=== PATIENT | male | born 1960 | race Caucasian/White ===

== ENCOUNTER 2018-06-23 08:16 | Emergency (ER) | payer BC ==
[2018-06-23 08:40] LABS: BASOPHILS # (AUTO) 0.1 10^3/uL (0.0-0.1); BASOPHILS % (AUTO) 0.8 %; EOSINOPHILS # (AUTO) 0.1 10^3/uL (0.0-0.7); EOSINOPHILS % (AUTO) 1.1 %; HGB - HEMOGLOBIN 12.8 g/dL (14.0-18.0); LYMPHOCYTES # (AUTO) 2.1 10^3/uL (1.5-3.5); LYMPHOCYTES % (AUTO) 25.8 %; MEAN CORPUSCULAR HEMOGLOBIN 29.8 pg (27.0-31.0); MEAN CORPUSCULAR HGB CONC 34.1 g/dL (32.0-36.0); MEAN CORPUSCULAR VOLUME 87.4 fL (80.0-94.0); MEAN PLATELET VOLUME 7.9 fL (7.4-11.4); MONOCYTES # (AUTO) 0.5 10^3/uL (0.0-1.0); MONOCYTES % (AUTO) 6.8 %; NEUTROPHILS # (AUTO) 5.2 10^3/uL (1.5-6.6); NEUTROPHILS % (AUTO) 65.5 %; PLT - PLATELET COUNT 232 10^3/uL (130-450); RED CELL DISTRIBUTION WIDTH 14.3 % (12.0-15.0)
[2018-06-23 08:54] LABS: ALBUMIN 4.2 g/dL (3.2-5.5); ALBUMIN/GLOBULIN RATIO 1.4 (1.0-2.2); BILIRUBIN,TOTAL 0.7 mg/dL (0.2-1.0); CALCIUM 8.9 mg/dL (8.5-10.3); TOTAL PROTEIN 7.2 g/dL (6.7-8.2)
--- NOTE | 2018-06-23 09:12 | XRAY Report ---
Reason: chest pain Procedure Date: 06/23/2018 Accession Number: [id number] / [id number] Procedure: XR - Chest 2 View X-Ray CPT Code: 09387 FULL RESULT: EXAM: CHEST RADIOGRAPHY EXAM DATE: 06/23/2018 08:44 AM. CLINICAL HISTORY: Left-sided chest pain for one day COMPARISON: None. TECHNIQUE: 2 views. FINDINGS: Lungs/Pleura: No focal opacities evident. No pleural effusion. No pneumothorax. Normal volumes. Mediastinum: Heart and mediastinal contours are unremarkable. IMPRESSION: No evidence of acute thoracic process RADIA
--- NOTE | 2018-06-23 09:18 | ED Physician Documentation ---
PD HPI CHEST PAIN - Stated complaint Stated Complaint: CHEST PX/DIZZY - Chief complaint Chief Complaint: Cardiac - History obtained from History obtained from: Patient, Family - History of Present Illness Timing - onset: Enter time (330pm), Yesterday Timing - onset during: Exertion Timing - duration: Hours Timing - details: Gradual onset, Still present Quality: Pressure, Tightness Location: Substernal Radiation: No: Jaw, Neck, Back, Abdominal, Left upper extremity, Right upper extremity Worsened by: Inspiration Associated symptoms: Feeling faint / dizzy, Other (headache). 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 It was quite warm out yesterday. He did have a lot of diaphoresis during this work. When he was on his way home, he has about 1/2 mile walk to the bus, and at that point he felt that he had some substernal chest pressure and a bit of a headache and did not feel well. This persisted through the night and is coming to the emergency department this morning concerned about what this chest pressure might mean. There has been a smoker inversion this past week and he has been bothered some by the smoke. He does not have radiation of his pain, he does not have exacerbation of the pain with exertion today and he has not had this pain previously. He does believe he did not drink much in the way of fluids yesterday. Review of Systems Constitutional: denies: Fever Eyes: denies: Decreased vision Ears: denies: Ear pain Nose: denies: Congestion Throat: denies: Sore throat Cardiac: reports: Chest pain / pressure. denies: Palpitations, Pedal edema, Calf pain Respiratory: denies: Dyspnea, Cough, Wheezing GI: denies: Abdominal Pain, Nausea, Vomiting : denies: Dysuria, Frequency Skin: denies: Rash Musculoskeletal: denies: Neck pain, Back pain, Extremity pain Neurologic: reports: Headache. denies: Generalized weakness, Focal weakness, Numbness, Head injury, LOC PD PAST MEDICAL HISTORY - Past Medical History Cardiovascular: Hypertension, High cholesterol Respiratory: Shortness of breath, Sleep apnea, CPAP use : Kidney stones Psych: Depression, Anxiety - Past Surgical History General: Cholecystectomy Ortho: Knee replacement - Present Medications Home Medications: Ambulatory Orders Medication Instructions Recorded Confirmed Atenolol 06/23/18 Atorvastatin [Lipitor] 06/23/18 06/23/18 Losartan [Cozaar] 06/23/18 Niacin 06/23/18 Venlafaxine [Effexor] 06/23/18 - Allergies Allergies/Adverse Reactions: Allergies Allergy/AdvReac Type Severity Reaction Status Date / Time Sulfa (Sulfonamide Allergy Itching Verified 06/23/18 08:25 Antibiotics) - Social History Does the pt smoke?: No Smoking Status: Never smoker Does the pt drink ETOH?: Yes Does the pt have substance abuse?: No PD ED PE NORMAL - Vitals Vital signs reviewed: Yes (hypertensive) - General General: Alert and oriented X 3, No acute distress, Well developed/nourished - HEENT HEENT: Atraumatic, PERRL, EOMI - Neck Neck: Supple, no meningeal sign, No bony TTP - Cardiac Cardiac: RRR, No murmur - Respiratory Respiratory: No respiratory distress, Clear bilaterally - Abdomen Abdomen: Soft, Non tender - Back Back: No CVA TTP, No spinal TTP - Derm Derm: Normal color, Warm and dry, No rash - Extremities Extremities: No deformity, No edema - Neuro Neuro: Alert and oriented X 3, 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, No motor deficit, No sensory deficit, Normal speech Eye Opening: Spontaneous Motor: Obeys Commands Verbal: Oriented GCS Score: 15 - Psych Psych: Normal mood, Normal affect Results - Vitals Vitals: Vital Signs - 24 hr 06/23/18 06/23/18 06/23/18 08:22 09:08 10:07 Temperature 36.4 C L Heart Rate 59 L 61 54 L Respiratory 20 17 16 Rate Blood Pressure 156/76 H 146/80 H 132/84 H O2 Saturation 99 98 98 06/23/18 10:44 Temperature 36.2 C L Heart Rate 55 L Respiratory 15 Rate Blood Pressure 131/77 H O2 Saturation 100 Oxygen O2 Source Room air - EKG (time done) 0824 Rate: Rate (enter#) (61) Rhythm: NSR Ischemia: Normal ST segments Compare to prior EKG: Old EKG unavailable Computer interpretation: Agree with computer - Labs Labs: Laboratory Tests 06/23/18 06/23/18 06/23/18 08:37 08:37 08:37 WBC 8.0 RBC 4.30 L Hgb 12.8 L Hct 37.6 L MCV 87.4 MCH 29.8 MCHC 34.1 RDW 14.3 Plt Count 232 MPV 7.9 Neut # (Auto) 5.2 Lymph # (Auto) 2.1 [place] # (Auto) 0.5 Eos # (Auto) 0.1 Baso # (Auto) 0.1 Absolute Nucleated RBC 0.00 Nucleated RBC % 0.0 Sodium 137 Potassium 3.7 Chloride 102 Carbon Dioxide 27 Anion Gap 8.0 BUN 21 H Creatinine 1.0 Estimated GFR (MDRD) 76 L Glucose 128 H Calcium 8.9 Total Bilirubin 0.7 AST 23 ALT 24 Alkaline Phosphatase 61 Troponin I < 0.04 Total Protein 7.2 Albumin 4.2 Globulin 3.0 Albumin/Globulin Ratio 1.4 Lipase 35 - Rads (name of study) 2 veiw chest Radiology: Prelim report reviewed (Impression: No evidence of acute thoracic process.), EMP read indepedently, See rad report PD MEDICAL DECISION MAKING - ED course Complexity details: reviewed results, re-evaluated patient, considered differential, d/w patient, d/w family ED course: 57-year-old male with substernal chest pain for 2 days has negative troponin and this is has occurred during a smoke inversion and I suspect this is subclinical asthma causing chest wall pain. Patient was found to be dehydrated as well and he was given intravenous hydration with improvement. - Sepsis Event Vital Signs: Vital Signs - 24 hr 06/23/18 06/23/18 06/23/18 08:22 09:08 10:07 Temperature 36.4 C L Heart Rate 59 L 61 54 L Respiratory 20 17 16 Rate Blood Pressure 156/76 H 146/80 H 132/84 H O2 Saturation 99 98 98 06/23/18 10:44 Temperature 36.2 C L Heart Rate 55 L Respiratory 15 Rate Blood Pressure 131/77 H O2 Saturation 100 Oxygen O2 Source Room air Departure - Departure Disposition: 01 Home, Self Care Clinical Impression: Atypical chest pain, Dehydration Condition: Stable Instructions: ED Chest Pain Atypical Unkn Cause, ED Dehydration Follow-Up: Bhupinder No MD [Physician No Access] - Discharge Date/Time: 06/23/18 10:51
[2018-06-23] MEDS ORDERED: SODIUM CHLORIDE 0.9% 1,000 ML IV ONE (09:23)
[2018-06-23] MEDS ORDERED: DEXAMETHASONE 10 MG/ML VIAL PO STA (10:36)
[2018-06-23 10:45] VITALS: BP 131/77
== END 2018-06-23 10:51 | disposition home or self-care (01) ==
LOC: ED 08:16
DX: R07.89 Other chest pain (principal); E86.0 Dehydration; I10 Essential (primary) hypertension
CPT/HCPCS: 36415; 71046; 80053; 83690; 84484; 85025; 93005; 96360; 99283; 99284

== ENCOUNTER 2021-09-05 08:00 | Outpatient (CLI) | payer BC | END 2021-09-05 23:59 | LOC: LAB 08:00 | PROVIDERS: ATTEND Emergency Medicine | DX: R07.0 Pain in throat (principal); Z20.822 Contact with and (suspected) exposure to COVID-19 | CPT/HCPCS: 87070 ==